=== PATIENT | female | born 1995 | race Caucasian/White ===

== ENCOUNTER 2018-06-15 11:44 | Outpatient (CLI) | payer MEDICAID | END 2018-06-15 15:00 | disposition home or self-care (01) | LOC: OBT 11:44 → L-D 11:44 → OBT 15:00 | DX: O62.9 Abnormality of forces of labor, unspecified (principal); Z3A.24 24 weeks gestation of pregnancy | CPT/HCPCS: 76815; 76817; 82731 ==